=== PATIENT | female | born 1965 | race Hispanic/Latino ===

== ENCOUNTER 2017-02-13 11:47 | Emergency (ER) | payer OTHER ==
[~2017-02-13] VITALS: Ht 154.9 cm; Wt 85.8 kg
[2017-02-13 11:51] VITALS: BP 152/91; PULSE 76; RESP 14; O2SAT 98
--- NOTE | 2017-02-13 12:03 | ED.REPORT ---
HPI-General Illness Date of Service Feb 13, 2017 ED Provider: Mian Pope DO Pt is a 51 y.o. female with a hx of HTN and HLD who presents to the ED c/o intermittent "patchy" blue hands and feet onset 2 days ago. [place] she first noticed the discoloration. The next day she states she was at her daughter house, had just gotten out of the shower, and noticed the discoloration again. Her daughter reports that the pt's hands were not cold to the touch. Upon arrival to the ED pt states the discoloration has resolved. She claims that she feels mild tingling when it occurs. She denies associated extremity pain, chest pain, SOB, fever, nausea, vomiting, and heat.cold intolerance. Nursing Notes Stated Complaint: FINGER AND TOES BLUE Chief Complaint: Extremity Trauma Nursing Notes Reviewed: Yes Allergies: Coded Allergies: No Known Allergies (Unverified Allergy, 02/13/14) General Time Seen by MD: 11:55 Chief Complaint Rash (Blue discoloration to bilateral hands and feet) Hx Obtained From: Patient Arrived By: Walk-in Sudden in Onset?: Yes Onset Occurred: 2 days ago Symptom Duration: Intermittent Severity: Current: No pain currently Severity: Maximum: No pain Similar Sx Previous: No Past Medical History Past Medical History Ovarian cysts Bladder sling Reports: GERD, Hyperlipidemia, Hypertension Past Surgical History Reports: Hysterectomy Smoking History Current Some Day Smoker Social History Alcohol Use: 1-3 per week Ambulatory Status Independent Review of Systems Full Review of Systems Constitutional: Denies: Fever Respiratory: Denies: Shortness of breath Cardiovascular: Denies: Chest pain Musculoskeletal: Denies: Extremity pain Endocrine: Denies: Cold intolerance, Heat intolerance Skin: Reports Rash (Blue hands and feet) Complete sys rev & neg: except as marked. Physical Exam Vital Signs Vital Signs Date Time Temp Pulse Resp B/P Pulse Ox O2 Delivery O2 Flow Rate FiO2 02/13/17 12:50 36. 76 14 152/91 98 Room Air 02/13/17 11:51 36. 76 14 152/91 98 Room Air Initial VS: Reviewed Head / Eyes: Atraumatic, Normocephalic Abdomen / GI: No distention Extremities: Vascular intact, Neuro intact Neurologic: Alert, Oriented, Nonfocal Psychiatric: Mood/affect normal, Behavior normal, Normal thought content General/Constitutional: Awake, Alert, No acute distress, Well appearing, Well developed, Well hydrated, Well nourished, Not toxic appearing Appearance / Presentation: Positive: Obese Respiratory / Chest: Atraumatic, Breath sounds NL, No respiratory distress Cardiovascular: Heart rate NL, Regular rhythm, Peripheral circulation NL Skin: Atraumatic, Color NL, No rash, Warm, Dry, Intact Interpretation & Diagnostics ABG Interpretation ABG Interpretation: pH...7.4 pCO2...40 pO2...79.2 cHCO3...25.6 cBase...1.7 FCOHb...1.1 FMetHb...1.1 ABG Findings: Normal blood gas, Oxygen normal, O2 saturation normal, CO2 normal, Bicarbonate normal Re-Eval/Medical Decision Med Decision/Clinical Course Symptoms are vague and not persistent, she is completely asymptomatic while in the ER without recurrence, no other systemic signs or symptoms to suggest obvious pathology. Methemoglobin level was normal, patient's given extensive follow-up and return precautions. She is urged to follow-up closely with her primary care. additionally, given instructions regarding concerning signs or symptoms with which to return to the ER. Source of Hx: Old records Time of Eval: 12:22 Re-Evaluation/Progress Note: Pt rechecked. Discussed plan for ABG, pt understands and agrees with plan. Time of Eval: 12:46 Re-Evaluation/Progress Note: Pt rechecked. Discussed ABG and plan for discharge, pt understands and agrees with plan. Counseled Regarding: Diagnosis Discharge & Departure Primary Impression: Extremity cyanosis Disposition: Home Discharge Condition All VS Reviewed: Yes Condition: No Change Additional Instructions: Your exam today is normal, and your oxygen level and carboxyhemoglobin and methemoglobin levels are normal as well. Overall no life-threatening cause your symptoms can be identified at this time, however this could be the sign of some other underlying medical condition, and you should call your regular doctor in the morning for a close follow-up appointment. Additionally, you should return to the ER if you develop shortness of breath, chest pain, signs or symptoms of stroke, high fever, persistent pain or loss of motor or sensory function in your extremities, or any other concerns. Referrals: OTHER,PHYSICIAN (PCP) (Family) Scribe Attestation Portions of this note were transcribed by Manfred Brewer. I, Dr. Pope personally performed the history, physical exam and medical decision-making; I reviewed and confirmed the accuracy of the information in the transcribed note. Signed by: Obdulia Fernandez, 02/13/17 and 1321. Mian Pope DO Feb 13, 2017 12:03 MANFRED BREWER Feb 13, 2017 12:11
--- NOTE | 2017-02-13 12:36 | ABG ---
DateTimeAnalyzed 12:32:00 -_ pH ____7.425 - 7.201 7.300 pCO2 ___39.7__ -mmHg 40.0 50.9 pO2 ___79.2__ -mmHg 45.0 70.0 HCO3- ___25.6__ -mmol/L 20.0 24.0 ABE ____1.7__ -mmol/L -6.0 -2.0 tHb ___12.0__ -g/dL 12.0 15.0 O2Hb ___94.4__ -% 95.0 COHb ____1.1__ -% 1.5 MetHb ____1.1__ -% 0.4 1.5 sO2 ___96.5__ -% FIO2 ___21.0__ -% Drawn By MT - Date/Time Notified____ 12:36:00 -_ Notified By MT - Notified Whom __O'Jeanine - B 751 -mmHg tO2 ___16.0__ -Vol% Miguel test _Positive -
[2017-02-13 12:50] VITALS: BP 152/91; PULSE 76; RESP 14; O2SAT 98
== END 2017-02-13 12:56 | disposition home or self-care (01) ==
LOC: SED 11:47
DX: R23.0 Cyanosis (principal); I10 Essential (primary) hypertension; E78.5 Hyperlipidemia, unspecified; K21.9 Gastro-esophageal reflux disease without esophagitis; F17.200 Nicotine dependence, unspecified, uncomplicated